=== PATIENT | male | born 1965 | race Caucasian/White ===

== ENCOUNTER 2021-05-19 12:26 | Inpatient (IN) | payer BC, SELFPAY ==
--- NOTE | ~2021-05-19 | XR_ITS ---
EXAMINATION: XR foot LT min 3V DATE: 05/19/2021 16:11 INDICATION: Plantar wound of the foot near the fifth metatarsophalangeal joint. TECHNIQUE: 4 views of right foot were obtained. COMPARISON: None. FINDINGS: Bone alignment is normal. No fracture. There is an erosion of lateral aspect of head of fif th metatarsal. There is soft tissue swelling in this area. There is mild osteoarthritis of some of th e interphalangeal joints. There is an enthesophyte at posterior aspect of calcaneal tuberosity. IMPRESSION: 1. Erosion of head of fifth metatarsal. The differential diagnosis includes osteomyelitis and gout. Reviewed, dictated and finalized at location A. EGE ASSOCIATE IMPRESSION: 1. Erosion of head of fifth metatarsal. The differential diagnosis includes ost eomyelitis and gout.
--- NOTE | ~2021-05-19 | MR_ITS ---
EXAMINATION: MR foot LT wo/w con DATE: 05/21/2021 16:41 INDICATION: Left foot diabetic ulcer. TECHNIQUE: Magnetic resonance imaging (MRI) of the left foot was performed without and with 17 mL Mul tiHance intravenous contrast. Sequences included sagittal T2-weighted FS FSE and T1-weighted FSE and short-axis and long-axis T1-weighted FSE and T2-weighted FS FSE. Postcontrast sequences included shor t-axis and long-axis T1-weighted FS FSE. COMPARISON: Left foot radiographs 05/19/2021 FINDINGS: There is mild hallux valgus. No fracture. There is bone marrow edema and enhancement involv ing head of fifth metatarsal and base of fifth proximal phalanx characterized by decreased T1-weighte d signal intensity and contrast enhancement, consistent with osteomyelitis. There is an effusion of f ifth metatarsophalangeal joint. There is failure of fat saturation on the T2-weighted sequences invol ving the fourth and fifth digits. There is an ulcer plantar to head of fifth metatarsal. There is non enhancement of soft tissue anterior, lateral, and plantar to head of fifth metatarsal. There is mild osteoarthritis of first metatarsophalangeal joint and some the interphalangeal joints. There is wides pread fatty atrophy and increased T2-weighted signal intensity of the musculature, consistent with hutchinson bacute on chronic denervation. Lisfranc ligament is intact. IMPRESSION: 1. Acute osteomyelitis involving head of fifth metatarsal and base of fifth proximal phalanx with sep tic arthritis of fifth metatarsophalangeal joint. 2. Nonenhancement of soft tissue plantar, lateral, and dorsal to fifth metatarsophalangeal joint, con sistent with necrosis/abscess. Reviewed, dictated and finalized at location A. CTOR OF RECRUITMENT AND ADMISSIONS IMPRESSION: 1. Acute osteomyelitis involving head of fifth metatarsal and base of fifth pro ximal phalanx with septic arthritis of fifth metatarsophalangeal joint. 2. Nonenhancement of soft tissue plantar, lateral, and dorsal to fifth metatars ophalangeal joint, consistent with necrosis/abscess.
--- NOTE | ~2021-05-19 | XR_ITS ---
EXAMINATION: XR chest PICC line EXAM DATE: 05/23/2021 12:16 INDICATION: PICC line insertion. TECHNIQUE: Portable AP frontal chest x-ray was obtained. There is no prior study for comparison. FINDINGS: There is a left-sided PICC line with tip projecting over the cavoatrial junction. The lungs are clear. There are no pleural effusions. The cardiomediastinal silhouette is within normal limit s. There is no pneumothorax suspected. The bones and soft tissues are unremarkable. IMPRESSION: Left-sided PICC line in position. Reviewed, dictated and finalized at location B. RANCE ADJUSTOR
[2021-05-19 13:07] VITALS: BP 165/94; PULSE 110; RESP 18; TEMP 37.3; O2SAT 99
[2021-05-19 16:05] LABS: Basophils Absolute Auto 0.1 K/mm3 (0.0-0.1); Basophils Percent Auto 0.3 % (0.2-1.2); Hemoglobin 13.9 g/dL (14.0-18.0); Immature Granulocyte Absolute 0.11 K/mm3 (0.00-0.031); Immature Granulocyte Percent A 0.6 % (0-0.5); Lymphocytes Absolute Auto 1.24 K/mm3 (0.9-3.2); Lymphocytes Percent Auto 6.2 % (18.3-44.2); Mean Corpuscular HGB Conc 33.9 g/dl (32-36); Mean Corpuscular Hemoglobin 29.3 pg (26-34); Mean Corpuscular Volume 86.3 fl (80-100); Mean Platelet Volume 9.3 fl (7.4-10.4); Monocytes Absolute Auto 1.4 K/mm3 (0.1-0.6); Monocytes Percent Auto 6.8 % (2.6-8.5); Neutrophils Absolute Auto 17.2 K/mm3 (1.3-6.7); Neutrophils Percent Auto 86.1 % (45.5-73.1); Platelet Count Result 323 k/mm3 (150-375); Red Blood Count 4.75 M/mm3 (4.6-6.20); Red Cell Distribution Width 12.4 % (11.5-14.5)
[2021-05-19] MEDS: SODIUM CHLORIDE 0.9% IV 1,000 ML 999 ML IV CONT (16:07)
--- NOTE | 2021-05-19 16:07 | ED.GENADULT ---
HPI - General Adult General Chief complaint: Extremity Injury, Lower Stated complaint: Foot infection. Time Seen by Provider: 05/19/21 15:25 History of Present Illness HPI narrative: Patient is a 55-year-old male who presents ER with infection to his left foot. He has an ulcer on the plantar aspect of his foot at the fifth MTP. Is been followed by his records management engineer and he has been taking Augmentin. Patient began having streaking up his leg over the last 2 days. He saw his doctor today who recommended that he come to the ER to be evaluated. He denies fevers or chills or sweats. No significant pain in the leg. He does report some purulent drainage today. Related Data Allergies Allergy/AdvReac Type Severity Reaction Status Date / Time No Known Allergies Allergy Mild Verified 05/19/21 13:11 Review of Systems Review of Systems: All systems reviewed & are unremarkable except as noted in HPI and below Constitutional: Constitutional: Denies chills, Denies fever(s) and Denies weakness ENT: Denies nasal congestion and Denies sore throat Cardiovascular: Cardiovascular: Denies chest pain, Denies rapid heart rate and Denies radiating jaw, neck or arm pain Gastrointestinal: Gastrointestinal: Denies abdominal pain, Denies nausea and Denies vomiting Integumentary/Breasts: Skin/Breast: Reports erythema and Reports skin ulcer PMFSH Past Medical History Medical History (Updated 05/19/21 @ 20:37 by Rangel Simmons MD) Diabetes Surgical History Surgical History (Updated 05/19/21 @ 20:32 by Rangel Simmons MD) Amputation toe Social History Social History (Updated 05/19/21 @ 20:33 by Rangel Simmons MD) Smoking status: Never smoker Exam Narrative: GENERAL: Well-appearing, well-nourished, and in no acute distress. HEAD: Normocephalic, atraumatic. ENT: Mucous membranes moist. CHEST: Clear to auscultation. No respiratory distress. HEART: Tachycardic regular. Normal peripheral pulses. ABDOMEN: Soft, nontender, nondistended. EXTREMITIES: Normal range of motion. No edema. SKIN: Warm, dry, no rash. Ulceration of the left foot beneath the fifth MTP, no drainage. There is cellulitis extending laterally around the foot and extending over the dorsum and streaking medially up towards the knee. NEURO: Alert and oriented x3. PSYCH: Normal mood and affect. Course Course Emergency Course: Discussed case with patient and with general surgery. Admit to hospital service. Vital Signs Vital signs: Vital Signs Temperature 99.2 F 05/19/21 13:07 Pulse Rate 110 H 05/19/21 13:07 Respiratory Rate 18 05/19/21 13:07 Blood Pressure 165/94 H 05/19/21 13:07 Pulse Oximetry 99 05/19/21 13:07 Temperature 99.2 F 05/19/21 13:07 Pulse Rate 110 H 05/19/21 13:07 Respiratory Rate 18 05/19/21 13:07 Blood Pressure 165/94 H 05/19/21 13:07 Pulse Oximetry 99 05/19/21 13:07 Medical Decision Making Vital Signs Vital Signs: Vital Signs Temperature 99.2 F 05/19/21 13:07 Pulse Rate 110 H 05/19/21 13:07 Respiratory Rate 18 05/19/21 13:07 Blood Pressure 165/94 H 05/19/21 13:07 Pulse Oximetry 99 05/19/21 13:07 Temperature 99.2 F 05/19/21 13:07 Pulse Rate 110 H 05/19/21 13:07 Respiratory Rate 18 05/19/21 13:07 Blood Pressure 165/94 H 05/19/21 13:07 Pulse Oximetry 99 05/19/21 13:07 Lab Data Result diagrams: 05/19/21 15:56 05/19/21 15:56 Labs: Lab Results 05/19/21 05/19/21 05/19/21 Range/Units 15:56 15:56 15:56 WBC 20.0 H (4.5-10.0) K/mm3 RBC 4.75 (4.6-6.20) M/mm3 Hgb 13.9 L (14.0-18.0) g/dL Hct 41.0 L (42.0-52.0) % MCV 86.3 (80-100) fl MCH 29.3 (26-34) pg MCHC 33.9 (32-36) g/dl RDW 12.4 (11.5-14.5) % Plt Count 323 (150-375) k/mm3 MPV 9.3 (7.4-10.4) fl Immature Gran % (Auto) 0.6 H (0-0.5) % Neut % (Auto) 86.1 H (45.5-73.1) % Lymph % (Auto) 6.2 L (18.3-44.2) % [place] % (Auto) 6
[2021-05-19 16:19] LABS: Anion Gap 14 mmol/L (8-16); Blood Urea Nitrogen 19 mg/dL (9-20); Calcium 9.5 mg/dL (8.4-10.2); Carbon Dioxide 23 mmol/L (22-30); Chloride 96 mmol/L (98-107); Estimated CRCL calculation 80 ml/min; Estimated Glomerular Filt Rate > 60; Glucose 131 mg/dL (65-110); Sodium 133 mmol/L (137-145)
[2021-05-19 17:08] LABS: CRP 14.2 mg/dL (<1.0)
[2021-05-19 17:11] LABS: Erythrocyte Sedimentation Rate 69 mm/hr (0-20)
--- NOTE | 2021-05-19 17:27 | PM.CNGS ---
Assessment and Plan Assessment and plan (1) Diabetic foot infection: Code(s): E11.628 - Type 2 diabetes mellitus with other skin complications; L08.9 - Local infection of the skin and subcutaneous tissue, unspecified Status: Acute Assessment and Plan: local wound care, IV abx, may need MRI for further eval (2) Diabetes: Code(s): E11.9 - Type 2 diabetes mellitus without complications Status: Acute Assessment and Plan: tight bs control History of Present Illness Consult details Consult date: 05/19/21 Reason for consult: wound care Requesting physician: Rangel Simomns MD Narrative: The patient is a 55 year male, with a history of diabetes and neuropathy, presenting to the emergency department with a left foot infection. The patient reports that he has a chronic wound on the plantar surface of his left foot present for many months. The patient has seen his statistical methods professor weekly and reports the wound has been stable. The patient reports over the last few days the area seems more inflamed and he recently developed a cellulitis streaking up his left lower extremity. The patient reports some purulent drainage that started today. The patient was seen by his statistical methods professor earlier today. He reports that his wound was debrided and then he was told to come to the emergency department for further evaluation. Of note, Augmentin since Wednesday. The patient has a history of toe amputation secondary to a foot infection in his right foot. Review of Systems Constitutional: Constitutional: Denies anorexia, Denies body ache(s), Denies chills, Reports fatigue, Denies fever(s), Denies malaise, Denies poor appetite, Reports weakness, Denies weight gain and Denies weight loss Eyes: Eyes: Reports no additional eye complaints ENT: Reports system reviewed and no additional complaints, except as documented Cardiovascular: Cardiovascular: Reports no additional cardiovascular complaints Respiratory: Respiratory: Reports no additional respiratory complaints Gastrointestinal: Gastrointestinal: Reports no additional gastrointestinal complaints Genitourinary: Genitourinary: Reports no additional male genitourinary complaints Musculoskeletal: Musculoskeletal: Reports as per HPI, Reports abnormal gait, Reports deformity, Reports numbness and Reports tingling Integumentary/Breasts: Skin/Breast: Reports as per HPI, Reports swelling, Reports erythema, Reports skin ulcer and Reports wounds Neurologic: Reports system reviewed and no additional complaints, except as documented Psychiatric: Psychiatric: Reports no additional psychiatric complaints Endocrine: Endocrine: Reports no additional endocrine complaints Hematologic/Lymphatic: Hematologic/Lymphatic: Reports no additional hematologic/lymphatic complaints Allergic/Immunologic: Allergic/Immunologic: Reports no additional allergic/immunologic complaints PMFSH Comments PMH - DM, neuropathy Surgical history - R toe amputation FH - DM SH - pt denies tobacco, illicit drug use Meds Home Medications and Allergies Allergies Allergy/AdvReac Type Severity Reaction Status Date / Time No Known Allergies Allergy Mild Verified 05/19/21 13:11 Vital Signs Vital Signs - 24 hr 05/19/21 13:07 Temperature 37.3 C Pulse Rate 110 H Respiratory Rate 18 Blood Pressure 165/94 H Pulse Oximetry 99 Exam Const: General: cooperative, comfortable and no acute distress Nutritional Appearance: overweight Orientation/consciousness: patient oriented x3 Limitations: no limitations HENMT: Head: normal to inspection, No palpable skull fracture present, normocephalic and atraumatic Ears: hearing grossly normal bilaterally General nose exam: Normal external nose present Face and sinus: normal facial exam Mouth: Yes Normal oral and palatal mucosa present and Yes moist mucous membranes Eyes: General: appearance normal, both eyes and all related structures Pupils: Equal, round and reac
--- NOTE | 2021-05-19 17:29 | PC.NURSE ---
order pt a diabetic room tray at [id number]
--- NOTE | 2021-05-19 18:45 | PM.IMHP ---
H&P: HPI History of Present Illness Date/Time: 05/19/21 18:45 Chief Complaint: Left foot infection. Narrative: This is a 55-year-old male with insulin dependent diabetes, diabetic peripheral neuropathy, he and peripheral vascular disease with history of right lower extremity stent who presented to the emergency department earlier today at the direction of his treasury accountant for evaluation of a left diabetic foot infection. He has had a small callused wound on the bottom of his left 5th toe for a couple of months and over the last week it has become red, swollen, and painful. He was started on Augmentin by his treasury accountant and despite compliance with the antibiotic the swelling and redness have worsened and he now has redness streaking up the left medial leg. Last evening he developed chills, nausea, and he has had several episodes of emesis. Left foot x-ray done in the emergency department showed erosion of the head of the 5th metatarsal and he is being admitted in this setting. He has not had a fever to his knowledge. No history of MRSA. Review of Systems Review of Systems: Twelve systems were reviewed. He was diagnosed with diabetes about 20 years ago and has severe neuropathy, typically not able to feel anything in his feet however he does have pain from this wound. No claudication. No chest pain or shortness of breath. No cough. No sick contacts. Except as documented, all other systems were reviewed and are negative. [facility] Past Medical History Medical History (Updated 05/19/21 @ 23:10 by Milagros Jackson PA-C) Diabetic peripheral neuropathy Insulin dependent type 2 diabetes mellitus Osteomyelitis Peripheral vascular disease Surgical History Surgical History (Updated 05/19/21 @ 23:01 by Milagros Jackson PA-C) History of cystoscopy With stone extraction. History of lithotripsy History of partial ray amputation of fifth toe of right foot History of vascular surgery Right lower extremity stent. History of ventral hernia repair Family History Family History (Updated 05/19/21 @ 23:01 by Milagros Jackson PA-C) Other Diabetes mellitus Hypertension Social History Social History (Updated 05/19/21 @ 23:02 by Milagros Jackson PA-C) Social History: Surrogate decision maker: Nataliia Back, spouse. Code status: Full code. Smoking status: Never smoker Alcohol intake: never Substance use: never Additional living arrangements comments: The patient lives in [place] with his . Additional occupation/education comments: Works for [employer]. Meds Home Medications and Allergies Home Medications Medication Instructions Recorded Confirmed Type aspirin [Adult Aspirin EC Low 81 mg PO DAILY 05/19/21 05/19/21 History Strength] atorvastatin 40 mg PO DAILY 05/19/21 05/19/21 History clopidogrel [Plavix] 75 mg PO DAILY 05/19/21 05/19/21 History dulaglutide [Trulicity] 3 mg SUBCUT WEEKLY 05/19/21 05/19/21 History empagliflozin [Jardiance] 25 mg PO DAILY 05/19/21 05/19/21 History insulin glargine [Lantus U-100 23 unit SUBCUT HS 05/19/21 05/19/21 History Insulin] meloxicam 15 mg PO DAILY 05/19/21 05/19/21 History metformin 500 mg PO BID 05/19/21 05/19/21 History Allergies Allergy/AdvReac Type Severity Reaction Status Date / Time No Known Allergies Allergy Mild Verified 05/19/21 13:11 Vital Signs Vital Signs - 24 hr 05/19/21 13:07 Temperature 99.2 F Pulse Rate 110 H Respiratory Rate 18 Blood Pressure 165/94 H Pulse Oximetry 99 Exam Narrative: General: Mildly ill-appearing male lying on his right side in bed. Weight: 84.7 kg. BMI: 25.3. HEENT: PERRL, EOMI. Sclerae anicteric. Tacky mucous membranes. Neck: Supple. Respiratory: Lungs are clear to auscultation bilaterally. Cardiovascular: Regular rate and rhythm with S1-S2. Gastrointestinal: Abdomen is soft, nontender, and nondistended with positive bowel sounds. Skin: Warm and dry. There is an open wound on the pl
[2021-05-19 20:58] VITALS: BP 164/88; PULSE 99; RESP 18; TEMP 37; O2SAT 97
[2021-05-19 21:03] VITALS: BMI 25.3
--- NOTE | 2021-05-19 21:33 | PC.NURSE ---
This patient, Jalen Back, was admitted to Medical Room 345-01. Patient/family oriented to hospital policies and general routines including ID bracelet, bed and alarms, visiting hours, pain management, procedures, bathroom and other care routines, personal items, smoking policy, room service/diet, and visiting hours. Information on how to activate the Rapid Response Team has been discussed. Patient/Family are encouraged to report perceived risks to care and to ask questions if they do not understand what they are told or what they should do.
[2021-05-19] MEDS: INSULIN GLARGINE (*BKC) 100 UNITS/ML 23 UNITS SUB-Q (23:59)
[2021-05-20 00:01] LABS: Glucose Point of Care 111 mg/dl (65-105)
[2021-05-20 04:56] VITALS: BP 142/78; PULSE 102; RESP 17; TEMP 36.2; O2SAT 99
[2021-05-20 06:17] LABS: Hematocrit 38.2 % (42.0-52.0); Hemoglobin 13.1 g/dL (14.0-18.0); Mean Corpuscular HGB Conc 34.3 g/dl (32-36); Mean Corpuscular Volume 84.7 fl (80-100); Mean Platelet Volume 9.3 fl (7.4-10.4); Platelet Count Result 328 k/mm3 (150-375); Red Blood Count 4.51 M/mm3 (4.6-6.20); Red Cell Distribution Width 12.2 % (11.5-14.5)
[2021-05-20 06:25] LABS: Alanine Aminotransferase 12 U/L (4-50); Albumin Level 4.1 g/dL (3.5-5.1); Alkaline Phosphatase 78 U/L (38-126); Anion Gap 10 mmol/L (8-16); Aspartate Amino Transferase 17 U/L (17-59); Bilirubin,Total 0.9 mg/dL (0.2-1.3); Blood Urea Nitrogen 16 mg/dL (9-20); Calcium 9.1 mg/dL (8.4-10.2); Carbon Dioxide 22 mmol/L (22-30); Chloride 101 mmol/L (98-107); Estimated CRCL calculation 114 ml/min; Estimated Glomerular Filt Rate > 60; Glucose 118 mg/dL (65-110); Magnesium 2.1 mg/dL (1.6-2.3); Potassium 3.9 mmol/L (3.4-5.0); Sodium 133 mmol/L (137-145); Uric Acid 5.1 mg/dL (3.5-8.5)
[2021-05-20 06:56] LABS: Hemoglobin A1C 6.2 % (<5.7)
[2021-05-20 07:44] LABS: Glucose Point of Care 129 mg/dl (65-105)
[2021-05-20] MEDS: ATORVASTATIN 40 MG TABLET PO (09:43)
[2021-05-20] MEDS: CLOPIDOGREL BISULFATE 75 MG TABLET PO (09:43)
[2021-05-20] MEDS: EMPAGLIFLOZIN 25 MG TABLET PO (09:43)
[2021-05-20] MEDS: ASPIRIN 81 MG ENTERIC TABLET PO (09:44)
[2021-05-20 11:39] LABS: Glucose Point of Care 106 mg/dl (65-105)
[2021-05-20 13:43] VITALS: BP 150/84; PULSE 97; RESP 18; TEMP 36.9; O2SAT 100
--- NOTE | 2021-05-20 14:16 | PM.IMPN ---
Progress Note: A&P Assessment and Plan (1) Diabetic infection of left foot: Code(s): E11.628 - Type 2 diabetes mellitus with other skin complications; L08.9 - Local infection of the skin and subcutaneous tissue, unspecified Status: Acute Assessment and Plan: Imaging shows erosion of the head of the 5th metatarsal most consistent with osteomyelitis, although gout is a less likely possibility. Continue imipenem and vancomycin per antibiotic stewardship recommendations. General surgery is following and input is appreciated. Appreciate Wound Care consultation. MRI of the left foot is pending. Leukocytosis slightly improving. Preliminary blood cultures negative to date. Patient remains afebrile. Supportive care to include analgesics, ice, or heat as needed. Elevate extremity. (2) Cellulitis of left foot: Code(s): L03.116 - Cellulitis of left lower limb Status: Acute Assessment and Plan: He has been started on broad-spectrum antibiotics as detailed above. (3) Insulin dependent type 2 diabetes mellitus: Code(s): E11.9 - Type 2 diabetes mellitus without complications; Z79.4 - custodial (current) use of insulin Status: Acute Assessment and Plan: A1c is 6.2. Blood sugars have been well controlled. Continue basal insulin and empagliflozin. Continue sliding scale insulin, Accu-Cheks, and hypoglycemic protocol. (4) Diabetic peripheral neuropathy: Code(s): E11.42 - Type 2 diabetes mellitus with diabetic polyneuropathy Status: Acute Assessment and Plan: Patient has severe neuropathy in his feet, not currently on any medication. (5) Peripheral vascular disease: Code(s): I73.9 - Peripheral vascular disease, unspecified Status: Acute Assessment and Plan: Continue aspirin and clopidogrel. (6) Elevated blood pressure reading: Code(s): R03.0 - Elevated blood-pressure reading, without diagnosis of hypertension Status: Acute Assessment and Plan: Blood pressure is elevated in the 150-160 systolic range. He denies any history of hypertension. May be related to pain and/or anxiety related to hospitalization. Continue to monitor blood pressure trends. Consider addition of antihypertensive agent if blood pressures remain elevated. Subjective Date/time seen: 05/20/21 14:16 Interval history: Date of Service: 05/20/2021 Jalen back is a 55-year-old male with a history of insulin-dependent diabetes mellitus, osteomyelitis s/p amputation of right 5th toe, and peripheral vascular disease who is seen in follow-up for diabetic foot wound of his left foot. He is doing better today. He notes that the wound has been present for approximately 6 months and has been followed by his relief map modeler. He notes that a couple days ago it became red, puffy, warm and he was afraid it seemed infected. He called his relief map modeler who started him on antibiotics and on Wednesday he developed red streaking up his legs. At this time he is doing okay. He does endorse persistence of red streaking up the leg up to the knee. He has poor sensation of his lower extremities, therefore does not have much pain. He notes that his pain is gone up to about 6.5/10 He is able to bear weight on the foot but has been trying to walk on his heel to offload some. He denies nausea, vomiting, fever, or chills. He does note that last night he had some nausea but no episodes today and he has been able to tolerate his diet. No diarrhea. He reports regular bowel movements. Denies any urinary symptoms. No shortness of breath, cough, chest pain, or palpitations. Review of Systems Review of Systems: All systems reviewed & are unremarkable except as noted in HPI and below Exam Narrative: Mr. Back is a well-nourished, well-appearing 55-year-old male who is lying supine in bed. He appears comfortable and is in NARD. Neuro: awake, alert and oriented x4, speech nela
--- NOTE | 2021-05-20 14:40 | PM.PNGS ---
Progress Note: A&P Assessment and Plan (1) Diabetic infection of left foot: Code(s): E11.628 - Type 2 diabetes mellitus with other skin complications; L08.9 - Local infection of the skin and subcutaneous tissue, unspecified Status: Acute Assessment and Plan: cont IV abx, will get MRI for further eval, cont local wound care Subjective Subjective Date/Time Seen: 05/20/21 14:40 feels better today, swelling seems improved Review of Systems Review of Systems: All systems reviewed & are unremarkable except as noted in HPI and below Exam Const: General: cooperative, comfortable and no acute distress Resp: Effort & Inspection: normal respiratory effort Auscultation: clear to auscultation bilaterally Cardio: Rate: regular rate Rhythm: regular rhythm GI: Inspection: normal to inspection and non-distended GI Palp: Yes Soft to palpation and No Tenderness to palpation present (GI) Skin: General skin exam: normal color and no rashes or lesions noted Psych: Other: L foot drsg - C/D/I, cellulitis sl improved Objective Data Vital Signs Vital Signs: Vital Signs - 24 hr 05/19/21 20:58 05/20/21 04:56 05/20/21 13:43 Temperature 37.0 C 36.2 C L 36.9 C Pulse Rate 99 102 H 97 Respiratory Rate 18 17 18 Blood Pressure 164/88 H 142/78 H 150/84 H Pulse Oximetry 97 99 100 Intake/Output Intake/Output: Intake & Output 05/17/21 05/18/21 05/19/21 05/20/21 23:59 23:59 23:59 23:59 Intake Total 1600 1480 Balance 1600 1480 Meds/Results Medications: Active Medications Generic Name Dose Route Start Last Admin Trade Name Freq PRN Reason Stop Dose Admin Acetaminophen 650 mg 05/19/21 16:47 Acetaminophen 325 Mg Tablet PO Q4H PRN Mild Pain (1-3) or Fever Hydrocodone Bitart/Acetaminophen 1 tab 05/19/21 16:47 Hydrocodone/Acetaminophen (*Crx) 5-325 Mg Tablet PO Q4H PRN Pain Rated 4-6 Aspirin 81 mg 05/20/21 09:00 05/20/21 09:44 Aspirin 81 Mg Enteric Tablet PO 81 mg DAILY ALLY Administration Atorvastatin Calcium 40 mg 05/20/21 09:00 05/20/21 09:43 Atorvastatin 40 Mg Tablet PO 40 mg DAILY ALLY Administration Clopidogrel Bisulfate 75 mg 05/20/21 09:00 05/20/21 09:43 Clopidogrel Bisulfate 75 Mg Tablet PO 75 mg DAILY ALLY Administration Dextrose 12.5 gm 05/19/21 23:07 Dextrose 50% 25 Gm/50 Ml Syringe IV PUSH PRN PRN Hypoglycemia Protocol Empagliflozin 25 mg 05/20/21 09:00 05/20/21 09:43 Empagliflozin 25 Mg Tablet PO 25 mg DAILY ALLY Administration Glucagon 1 mg 05/19/21 23:07 Glucagon For Inj 1 Mg Vial IM PRN PRN Hypoglycemia Protocol Glucose 15 gm 05/19/21 23:07 Glucose Oral Gel 15 Gm Of Glucse In 37.5 Gm Tube PO PRN PRN Hypoglycemia Protocol Imipenem/Cilastatin Sodium 500 100 mls @ 300 mls/hr 05/20/21 00:00 05/20/21 11:42 mg/ Sodium Chloride IVPB Infused Q6H ALLY Infusion Vancomycin HCl 1,500 mg in 500 mls @ 333.333 mls/hr 05/20/21 06:00 05/20/21 08:21 Vancomycin 1,500 Mg/D5w 500 Ml IVPB Infused Q12H ALLY Infusion Dextrose 1,000 mls @ 100 mls/hr 05/19/21 23:07 Dextrose 5% 1,000 Ml IVPB PRN PRN Hypoglycemia Protocol Insulin Aspart 3 - 6 units 05/20/21 08:00 05/20/21 11:23 Insulin Aspart (*Bkc) 100 Units/Ml SUB-Q Not Given TIDWM [facility] [place] Protocol Insulin Glargine 23 units 05/19/21 23:30 05/19/21 23:59 Insulin Glargine (*Bkc) 100 Units/Ml SUB-Q 23 units HS ALLY Administration Morphine Sulfate 4 mg 05/19/21 16:47 Morphine Sulfate (*Crx) 4 Mg/Ml Inj IV PUSH Q2H PRN Pain Rated 7-10 Ondansetron HCl 4 mg 05/19/21 16:47 Ondansetron Inj 4 Mg/2 Ml Vial IV PUSH Q4H PRN Nausea Radiology Results: ITS Impressions Foot X-Ray 05/19/21 16:14 IMPRESSION: 1. Erosion of head of fifth metatarsal. The differential diagnosis includes osteomyelitis and gout. Labs Labs: Laborat
[2021-05-20 17:00] LABS: Glucose Point of Care 97 mg/dl (65-105)
[2021-05-20 19:49] VITALS: BP 151/85; PULSE 96; RESP 17; TEMP 36.2; O2SAT 99
[2021-05-20] MEDS: INSULIN GLARGINE (*BKC) 100 UNITS/ML 23 UNITS SUB-Q (20:32)
[2021-05-20 20:36] LABS: Glucose Point of Care 121 mg/dl (65-105)
[2021-05-21 05:12] VITALS: BP 148/83; PULSE 96; RESP 16; TEMP 36.8; O2SAT 99
[2021-05-21 05:58] LABS: Hematocrit 44.1 % (42.0-52.0); Hemoglobin 14.2 g/dL (14.0-18.0); Mean Corpuscular HGB Conc 32.2 g/dl (32-36); Mean Corpuscular Hemoglobin 29.4 pg (26-34); Mean Corpuscular Volume 91.3 fl (80-100); Mean Platelet Volume 9.3 fl (7.4-10.4); Platelet Count Result 302 k/mm3 (150-375); Red Blood Count 4.83 M/mm3 (4.6-6.20); Red Cell Distribution Width 12.3 % (11.5-14.5); White Blood Count 10.9 K/mm3 (4.5-10.0)
[2021-05-21 07:00] LABS: Anion Gap 9 mmol/L (8-16); Blood Urea Nitrogen 14 mg/dL (9-20); Calcium 9.1 mg/dL (8.4-10.2); Carbon Dioxide 23 mmol/L (22-30); Chloride 101 mmol/L (98-107); Estimated CRCL calculation 131 ml/min; Estimated Glomerular Filt Rate > 60; Glucose 101 mg/dL (65-110); Potassium 4.6 mmol/L (3.4-5.0); Sodium 133 mmol/L (137-145)
[2021-05-21 07:56] LABS: Glucose Point of Care 95 mg/dl (65-105)
[2021-05-21] MEDS: CLOPIDOGREL BISULFATE 75 MG TABLET PO (08:25)
[2021-05-21] MEDS: EMPAGLIFLOZIN 25 MG TABLET PO (08:25)
[2021-05-21] MEDS: ATORVASTATIN 40 MG TABLET PO (08:25)
[2021-05-21] MEDS: ASPIRIN 81 MG ENTERIC TABLET PO (08:25)
--- NOTE | 2021-05-21 11:20 | PM.IMPN ---
Progress Note: A&P Assessment and Plan (1) Diabetic infection of left foot: Code(s): E11.628 - Type 2 diabetes mellitus with other skin complications; L08.9 - Local infection of the skin and subcutaneous tissue, unspecified Status: Acute Assessment and Plan: Imaging shows erosion of the head of the 5th metatarsal most consistent with osteomyelitis or gout Uric acid 5.1 Continue imipenem and vancomycin per antibiotic stewardship recommendations General surgery Consulted thank you for your help Wound Care consultation MRI of the left foot is ordered and pending Leukocytosis improving 10.9 Preliminary blood cultures negative to date afebrile Supportive care to include analgesics, ice, or heat as needed Elevate extremity. (2) Cellulitis of left foot: Code(s): L03.116 - Cellulitis of left lower limb Status: Acute Assessment and Plan: broad-spectrum antibiotics as detailed above. 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 (5) Peripheral vascular disease: Code(s): I73.9 - Peripheral vascular disease, unspecified Status: Acute Assessment and Plan: Continue aspirin and clopidogrel. (6) Elevated blood pressure reading: Code(s): R03.0 - Elevated blood-pressure reading, without diagnosis of hypertension Status: Acute Assessment and Plan: Current BP is 148/83 Blood pressure is elevated in the 150-160 systolic range denies any history of hypertension May be related to pain and/or anxiety related to hospitalization Continue to monitor blood pressure trends Add lisinopril 5mg Additional Plan MRI delayed due to stent in leg, requesting records at this time Time Spent With Patient Time with patient: 25 - 35 minutes Subjective Date/time seen: 05/21/21 11:20 Interval history: Date/Time: 05/19/21 18:45 Narrative: This is a 55-year-old male with insulin dependent diabetes, diabetic peripheral neuropathy, he and peripheral vascular disease with history of right lower extremity stent who presented to the emergency department earlier today at the direction of his tube test technician for evaluation of a left diabetic foot infection. He has had a small callused wound on the bottom of his left 5th toe for a couple of months and over the last week it has become red, swollen, and painful. He was started on Augmentin by his tube test technician and despite compliance with the antibiotic the swelling and redness have worsened and he now has redness streaking up the left medial leg. Last evening he developed chills, nausea, and he has had several episodes of emesis. Left foot x-ray done in the emergency department showed erosion of the head of the 5th metatarsal and he is being admitted in this setting. He has not had a fever to his knowledge. No history of MRSA. Date/time seen: 05/20/21 14:16 Jalen gomez is a 55-year-old male with a history of insulin-dependent diabetes mellitus, osteomyelitis s/p amputation of right 5th toe, and peripheral vascular disease who is seen in follow-up for diabetic foot wound of his left foot. He is doing better today. He notes that the wound has been present for approximately 6 months and has been followed by his tube test technician. He notes that a couple days ago it became red, puffy, warm and he was afraid it seemed infected. He called his tube test technician
--- NOTE | 2021-05-21 11:20 | P.PNIM_ITS ---
Progress Note: A&P Assessment and Plan (1) Diabetic infection of left foot: Code(s): E11.628 - Type 2 diabetes mellitus with other skin complications; L08.9 - Local infection of the skin and subcutaneous tissue, unspecified Status: Acute Assessment and Plan: * Imaging shows erosion of the head of the 5th metatarsal most consistent with osteomyelitis or gout * Uric acid 5.1 * Continue imipenem and vancomycin per antibiotic stewardship recommendations * General surgery Consulted thank you for your help * Wound Care consultation * MRI of the left foot is ordered and pending * Leukocytosis improving 10.9 * Preliminary blood cultures negative to date * afebrile * Supportive care to include analgesics, ice, or heat as needed * Elevate extremity. (2) Cellulitis of left foot: Code(s): L03.116 - Cellulitis of left lower limb Status: Acute Assessment and Plan: * broad-spectrum antibiotics as detailed above. 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 (5) Peripheral vascular disease: Code(s): I73.9 - Peripheral vascular disease, unspecified Status: Acute Assessment and Plan: * Continue aspirin and clopidogrel. (6) Elevated blood pressure reading: Code(s): R03.0 - Elevated blood-pressure reading, without diagnosis of hypertension Status: Acute Assessment and Plan: * Current BP is 148/83 * Blood pressure is elevated in the 150-160 systolic range * denies any history of hypertension * May be related to pain and/or anxiety related to hospitalization * Continue to monitor blood pressure trends * Add lisinopril 5mg Additional Plan * MRI delayed due to stent in leg, requesting records at this time Time Spent With Patient Time with patient: 25 - 35 minutes Subjective Date/time seen: 05/21/21 11:20 Interval history: Date/Time: 05/19/21 18:45 Narrative: This is a 55-year-old male with insulin dependent diabetes, diabetic peripheral neuropathy, he and peripheral vascular disease with history of right lower extremity stent who presented to the emergency department earlier today at the direction of his technician submarine cable equipment for evaluation of a left diabetic foot i nfection. He has had a small callused wound on the bottom of his left 5th toe for a couple of months and over the last week it has become red, swollen, and painful. He was started on Augmentin by his technician submarine cable equipment and despite compliance with the antibiotic the swelling and redness have worsened and he now has redness streaking up the left medial leg. Last evening he developed chills, nausea, and he has had several episodes of emesis. Left foot x-ray done in the emergency department showed erosion of the head of the 5th metatarsal and he is being admitted in this setting. He has not had a fever to his knowledge. No history of MRSA. Date/time seen: 05/20/21 14:16 Jalen gomez is a 55-year-old male with a history of insulin-d
[2021-05-21 11:41] LABS: Glucose Point of Care 152 mg/dl (65-105)
[2021-05-21 14:00] VITALS: BP 143/74; PULSE 98; RESP 16; TEMP 36.4; O2SAT 100
--- NOTE | 2021-05-21 15:08 | PM.PNGS ---
Progress Note: A&P Assessment and Plan (1) Diabetic infection of left foot: Code(s): E11.628 - Type 2 diabetes mellitus with other skin complications; L08.9 - Local infection of the skin and subcutaneous tissue, unspecified Status: Acute Assessment and Plan: await MRI for further workup, pt likely c osteo and will need abx vs amputation, cont IV abx Subjective Subjective Date/Time Seen: 05/21/21 15:08 feels better today, no acute issues Review of Systems Review of Systems: All systems reviewed & are unremarkable except as noted in HPI and below Exam Const: General: cooperative, comfortable and no acute distress Resp: Effort & Inspection: normal respiratory effort Auscultation: clear to auscultation bilaterally Cardio: Rate: regular rate Rhythm: regular rhythm GI: Inspection: normal to inspection GI Palp: Yes Soft to palpation and No Tenderness to palpation present (GI) Extrem: Other: L foot - cellulitis and swelling cont to improved, wound unchanged, sl drainage Objective Data Vital Signs Vital Signs: Vital Signs - 24 hr 05/20/21 19:49 05/21/21 05:12 05/21/21 14:00 Temperature 36.2 C L 36.8 C 36.4 C L Pulse Rate 96 96 98 Respiratory Rate 17 16 16 Blood Pressure 151/85 H 148/83 H 143/74 H Pulse Oximetry 99 99 100 Intake/Output Intake/Output: Intake & Output 05/18/21 05/19/21 05/20/21 05/21/21 23:59 23:59 23:59 23:59 Intake Total 1600 2300 1280 Balance 1600 2300 1280 Meds/Results Medications: Active Medications Generic Name Dose Route Start Last Admin Trade Name Freq PRN Reason Stop Dose Admin Acetaminophen 650 mg 05/19/21 16:47 Acetaminophen 325 Mg Tablet PO Q4H PRN Mild Pain (1-3) or Fever Hydrocodone Bitart/Acetaminophen 1 tab 05/19/21 16:47 Hydrocodone/Acetaminophen (*Crx) 5-325 Mg Tablet PO Q4H PRN Pain Rated 4-6 Aspirin 81 mg 05/20/21 09:00 05/21/21 08:25 Aspirin 81 Mg Enteric Tablet PO 81 mg DAILY ALLY Administration Atorvastatin Calcium 40 mg 05/20/21 09:00 05/21/21 08:25 Atorvastatin 40 Mg Tablet PO 40 mg DAILY [facility] Administration Clopidogrel Bisulfate 75 mg 05/20/21 09:00 05/21/21 08:25 Clopidogrel Bisulfate 75 Mg Tablet PO 75 mg DAILY [facility] Administration Dextrose 12.5 gm 05/19/21 23:07 Dextrose 50% 25 Gm/50 Ml Syringe IV PUSH PRN PRN Hypoglycemia Protocol Empagliflozin 25 mg 05/20/21 09:00 05/21/21 08:25 Empagliflozin 25 Mg Tablet PO 25 mg DAILY [facility] Administration Glucagon 1 mg 05/19/21 23:07 Glucagon For Inj 1 Mg Vial IM PRN PRN Hypoglycemia Protocol Glucose 15 gm 05/19/21 23:07 Glucose Oral Gel 15 Gm Of Glucse In 37.5 Gm Tube PO PRN PRN Hypoglycemia Protocol Imipenem/Cilastatin Sodium 500 100 mls @ 300 mls/hr 05/20/21 00:00 05/21/21 13:35 mg/ Sodium Chloride IVPB Infused Q6H [facility]Y Infusion Dextrose 1,000 mls @ 100 mls/hr 05/19/21 23:07 Dextrose 5% 1,000 Ml IVPB PRN PRN Hypoglycemia Protocol Vancomycin HCl 2,000 mg in 500 mls @ 250 mls/hr 05/21/21 08:00 05/21/21 10:26 Vancomycin 2,000 Mg/D5w 500 Ml IVPB Infused Q12H [facility]Y Infusion Insulin Aspart 3 - 6 units 05/20/21 08:00 05/21/21 13:13 Insulin Aspart (*Bkc) 100 Units/Ml SUB-Q Not Given TIDWM [facility] Protocol Insulin Glargine 23 units 05/19/21 23:30 05/20/21 20:32 Insulin Glargine (*Bkc) 100 Units/Ml SUB-Q 23 units HS [facility] Administration Lisinopril 5 mg 05/22/21 09:00 Lisinopril 5 Mg Tablet PO QAM ALLY Morphine Sulfate 4 mg 05/19/21 16:47 Morphine Sulfate (*Crx) 4 Mg/Ml Inj IV PUSH Q2H PRN Pain Rated 7-10 Ondansetron HCl 4 mg 05/19/21 16:47 Ondansetron Inj 4 Mg/2 Ml Vial IV PUSH Q4H PRN Nausea Radiology Results: ITS Impressions Foot X-Ray 05/19/21 16:14 IMPRESSION: 1. Erosion of head of fifth metatarsal. The differential diagnosis includes osteo
[2021-05-21 18:31] LABS: Glucose Point of Care 171 mg/dl (65-105)
[2021-05-21 20:00] VITALS: PULSE 97; RESP 16; O2SAT 99
[2021-05-21] MEDS: INSULIN GLARGINE (*BKC) 100 UNITS/ML 23 UNITS SUB-Q (20:15)
[2021-05-21 20:47] VITALS: BP 174/91; PULSE 97; RESP 16; TEMP 36.2; O2SAT 99
[2021-05-21 20:52] LABS: Glucose Point of Care 223 mg/dl (65-105)
--- NOTE | 2021-05-21 20:56 | PC.NURSE ---
Spoke with pt at length and he stated that stunt double wants him to have a Picc line and IV antibiotics for 6 weeks. Encouraged pt to speak with in am regarding situation.
[2021-05-22 05:06] VITALS: BP 159/94; PULSE 94; RESP 16; TEMP 36.2; O2SAT 100
[2021-05-22 06:28] LABS: Basophils Absolute Auto 0.1 K/mm3 (0.0-0.1); Basophils Percent Auto 0.6 % (0.2-1.2); Eosinophils Absolute Auto 0.5 K/mm3 (0-0.3); Eosinophils Percent Auto 4.4 % (0-4.4); Hematocrit 38.4 % (42.0-52.0); Hemoglobin 13.2 g/dL (14.0-18.0); Immature Granulocyte Absolute 0.06 K/mm3 (0.00-0.031); Immature Granulocyte Percent A 0.5 % (0-0.5); Lymphocytes Absolute Auto 1.59 K/mm3 (0.9-3.2); Lymphocytes Percent Auto 14.5 % (18.3-44.2); Mean Corpuscular HGB Conc 34.4 g/dl (32-36); Mean Corpuscular Hemoglobin 28.7 pg (26-34); Mean Corpuscular Volume 83.5 fl (80-100); Mean Platelet Volume 8.9 fl (7.4-10.4); Monocytes Percent Auto 8.7 % (2.6-8.5); Neutrophils Absolute Auto 7.8 K/mm3 (1.3-6.7); Neutrophils Percent Auto 71.3 % (45.5-73.1); Platelet Count Result 369 k/mm3 (150-375); Red Cell Distribution Width 12.2 % (11.5-14.5); White Blood Count 10.9 K/mm3 (4.5-10.0)
[2021-05-22 06:56] LABS: Alanine Aminotransferase 14 U/L (4-50); Albumin Level 3.9 g/dL (3.5-5.1); Alkaline Phosphatase 85 U/L (38-126); Anion Gap 9 mmol/L (8-16); Aspartate Amino Transferase 21 U/L (17-59); Bilirubin,Total 0.6 mg/dL (0.2-1.3); Blood Urea Nitrogen 11 mg/dL (9-20); Carbon Dioxide 24 mmol/L (22-30); Chloride 103 mmol/L (98-107); Estimated CRCL calculation 114 ml/min; Estimated Glomerular Filt Rate > 60; Glucose 119 mg/dL (65-110); Magnesium 2.2 mg/dL (1.6-2.3); Potassium 3.8 mmol/L (3.4-5.0); Sodium 136 mmol/L (137-145)
[2021-05-22 07:37] LABS: Glucose Point of Care 111 mg/dl (65-105)
[2021-05-22] MEDS: CLOPIDOGREL BISULFATE 75 MG TABLET PO (08:09)
[2021-05-22] MEDS: ATORVASTATIN 40 MG TABLET PO (08:09)
[2021-05-22] MEDS: ASPIRIN 81 MG ENTERIC TABLET PO (08:09)
[2021-05-22] MEDS: EMPAGLIFLOZIN 25 MG TABLET PO (08:09)
[2021-05-22 10:10] VITALS: BP 159/87; PULSE 87
[2021-05-22] MEDS: lisinopriL 5 MG TABLET PO (10:14)
--- NOTE | 2021-05-22 10:57 | PM.IMPN ---
Progress Note: A&P Assessment and Plan (1) Diabetic infection of left foot: Code(s): E11.628 - Type 2 diabetes mellitus with other skin complications; L08.9 - Local infection of the skin and subcutaneous tissue, unspecified Status: Acute Assessment and Plan: X-ray showed erosion of the head of the 5th metatarsal most consistent with osteomyelitis. MRI performed 05/21/21 showed acute osteomyelitis of the head of the 5th metatarsal and base of 5th proximal phalanx with septic arthritis of the 5th MTP joint as well as non enhancement of soft tissue of the plantar, lateral, and dorsal to 5th MTP joint consistent with necrosis/abscess Discussed case with general surgeon, Dr. Rodriges, who is following and with the patient's hospitality internship, Dr. Tellez, who has been managing the wound. Recommendations for amputation vs 6 weeks IV antibiotic therapy with reassessment. Patient determining if he would like to proceed directly with amputation vs attempting antibiotic therapy. He would like to speak with his hospitality internship about these options prior to making his decision. He will call today. Would arrange for PICC line and outpatient IV vancomycin with prompt podiatry follow-up if patient chooses antibiotic therapy approach. Care coordination following and aware of situation. Discussed with hospitality internship and reviewed patient's wound cultures from 05/19/2021 with growth of Staphylococcus aureus susceptible to vancomycin which is being continued. Will discontinue Primaxin at this time. Appreciate Wound Care consultation. Continue local wound care Leukocytosis has improved from presentation. CRP also improving. Patient remains afebrile. Blood cultures negative to date Supportive care to include analgesics, ice, or heat as needed. Elevate extremity (2) Osteomyelitis of fifth toe of left foot: Code(s): M86.9 - Osteomyelitis, unspecified Status: Acute Assessment and Plan: As above. (3) Septic arthritis: Code(s): M00.9 - Pyogenic arthritis, unspecified Status: Acute Assessment and Plan: See above. (4) Cellulitis of left foot: Code(s): L03.116 - Cellulitis of left lower limb Status: Acute Assessment and Plan: Plan as detailed above. 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 Blood sugars have been well controlled. Continue basal insulin and empagliflozin Continue sliding scale insulin, Accu-Cheks, and hypoglycemic protocol (6) Diabetic peripheral neuropathy: Code(s): E11.42 - Type 2 diabetes mellitus with diabetic polyneuropathy Status: Acute Assessment and Plan: Severe neuropathy in his feet, not currently on any medication. (7) Peripheral vascular disease: Code(s): I73.9 - Peripheral vascular disease, unspecified Status: Acute Assessment and Plan: Continue aspirin and clopidogrel. (8) Elevated blood pressure reading: Code(s): R03.0 - Elevated blood-pressure reading, without diagnosis of hypertension Status: Acute Assessment and Plan: Blood pressure has been elevated. The patient denies any history of hypertension. Initially thought it may be related to pain and/or anxiety related to hospitalization, though BP remains persistently elevated. Last BP 159/94 Initiated on lisinopril 5 mg daily Monitor blood pressure trends and adjust medication regimen as needed Subjective Date/time seen: 05/22/21 10:57 Interval history: Date of Service: 05/22/2021 Jalen Back is a 55-year-old male with a history of insulin-dependent diabetes mellitus, osteomyelitis s/p amputation of right 5th toe, and peripheral vascular disease who is seen in follow-up for osteomyelitis of the left 5th toe. He is doing well today. He has no
[2021-05-22 11:41] LABS: Glucose Point of Care 117 mg/dl (65-105)
[2021-05-22 14:00] VITALS: BP 163/89; PULSE 93; RESP 16; TEMP 36.6; O2SAT 99
--- NOTE | 2021-05-22 14:17 | PM.PNGS ---
Progress Note: A&P Assessment and Plan (1) Osteomyelitis of fifth toe of left foot: Code(s): M86.9 - Osteomyelitis, unspecified Status: Acute Assessment and Plan: MRI reviewed with patient, will likely need amputation, discussed extensively with patient and he would like to have surgery performed if necessary by his gold and silver assayer, as the patient is now improving with antibiotic I am comfortable with him being discharged on IV antibiotics and urgent follow-up with gold and silver assayer (2) Diabetic infection of left foot: Code(s): E11.628 - Type 2 diabetes mellitus with other skin complications; L08.9 - Local infection of the skin and subcutaneous tissue, unspecified Status: Acute Assessment and Plan: see above, continue IV antibiotics, await Podiatry consultation as outpatient, tight blood sugar control Subjective Subjective Date/Time Seen: 05/22/21 14:17 feels good, wants to go home, pain, swelling improved Review of Systems Review of Systems: All systems reviewed & are unremarkable except as noted in HPI and below Exam Const: General: cooperative, comfortable and no acute distress Resp: Effort & Inspection: normal respiratory effort Auscultation: clear to auscultation bilaterally Cardio: Rate: regular rate Rhythm: regular rhythm GI: Inspection: normal to inspection and non-distended GI Palp: No abdominal tenderness and Yes Soft to palpation Extrem: Other: L foot - swelling improved, sl cellulitis, dressing C/D/I Objective Data Vital Signs Vital Signs: Vital Signs - 24 hr 05/21/21 20:00 05/21/21 20:47 05/22/21 05:06 Temperature 36.2 C L 36.2 C L Pulse Rate 97 97 94 Respiratory Rate 16 16 16 Blood Pressure 174/91 H 159/94 H Pulse Oximetry 99 99 100 05/22/21 10:10 Temperature Pulse Rate 87 Respiratory Rate Blood Pressure 159/87 H Pulse Oximetry Intake/Output Intake/Output: Intake & Output 05/19/21 05/20/21 05/21/21 05/22/21 23:59 23:59 23:59 23:59 Intake Total 1600 2300 2980 1010 Balance 1600 2300 2980 1010 Meds/Results Medications: Active Medications Generic Name Dose Route Start Last Admin Trade Name Freq PRN Reason Stop Dose Admin Acetaminophen 650 mg 05/19/21 16:47 Acetaminophen 325 Mg Tablet PO Q4H PRN Mild Pain (1-3) or Fever Hydrocodone Bitart/Acetaminophen 1 tab 05/19/21 16:47 Hydrocodone/Acetaminophen (*Crx) 5-325 Mg Tablet PO Q4H PRN Pain Rated 4-6 Aspirin 81 mg 05/20/21 09:00 05/22/21 08:09 Aspirin 81 Mg Enteric Tablet PO 81 mg DAILY ALLY Administration Atorvastatin Calcium 40 mg 05/20/21 09:00 05/22/21 08:09 Atorvastatin 40 Mg Tablet PO 40 mg DAILY ALLY Administration Clopidogrel Bisulfate 75 mg 05/20/21 09:00 05/22/21 08:09 Clopidogrel Bisulfate 75 Mg Tablet PO 75 mg DAILY ALLY Administration Dextrose 12.5 gm 05/19/21 23:07 Dextrose 50% 25 Gm/50 Ml Syringe IV PUSH PRN PRN Hypoglycemia Protocol Empagliflozin 25 mg 05/20/21 09:00 05/22/21 08:09 Empagliflozin 25 Mg Tablet PO 25 mg DAILY [facility]Y Administration Glucagon 1 mg 05/19/21 23:07 Glucagon For Inj 1 Mg Vial IM PRN PRN Hypoglycemia Protocol Glucose 15 gm 05/19/21 23:07 Glucose Oral Gel 15 Gm Of Glucse In 37.5 Gm Tube PO PRN PRN Hypoglycemia Protocol Dextrose 1,000 mls @ 100 mls/hr 05/19/21 23:07 Dextrose 5% 1,000 Ml IVPB PRN PRN Hypoglycemia Protocol Vancomycin HCl 2,000 mg in 500 mls @ 250 mls/hr 05/21/21 08:00 05/22/21 08:09 Vancomycin 2,000 Mg/D5w 500 Ml IVPB 250 mls/hr Q12H [facility]Y Administration Insulin Aspart 3 - 6 units 05/20/21 08:00 05/22/21 13:23 Insulin Aspart (*Bkc) 100 Units/Ml SUB-Q Not Given TIDWM [facility] Protocol Insulin Glargine 23 units 05/19/21 23:30 05/21/21 20:15 Insulin Glargine (*Bkc) 100 Units/Ml SUB-Q 23 units HS [facility] Administration Lisinopril 5 mg 05/22/21 09:00 12
[2021-05-22 16:46] LABS: Glucose Point of Care 112 mg/dl (65-105)
[2021-05-22 19:26] LABS: Vancomycin Trough 12.9 ug/mL (10.0-20.0)
[2021-05-22] MEDS: INSULIN GLARGINE (*BKC) 100 UNITS/ML 23 UNITS SUB-Q (20:13)
[2021-05-22 20:22] LABS: Glucose Point of Care 195 mg/dl (65-105)
[2021-05-22 20:25] VITALS: BP 153/93; PULSE 96; RESP 18; TEMP 35.9; O2SAT 98
[2021-05-23 05:59] VITALS: BP 121/63; PULSE 96; RESP 16; TEMP 36; O2SAT 99
[2021-05-23 06:13] LABS: Hematocrit 40.6 % (42.0-52.0); Hemoglobin 13.5 g/dL (14.0-18.0); Mean Corpuscular HGB Conc 33.3 g/dl (32-36); Mean Corpuscular Hemoglobin 28.7 pg (26-34); Mean Corpuscular Volume 86.4 fl (80-100); Mean Platelet Volume 8.8 fl (7.4-10.4); Platelet Count Result 381 k/mm3 (150-375); Red Cell Distribution Width 12.3 % (11.5-14.5); White Blood Count 11.1 K/mm3 (4.5-10.0)
[2021-05-23 06:24] LABS: Anion Gap 11 mmol/L (8-16); Blood Urea Nitrogen 13 mg/dL (9-20); CRP 3.7 mg/dL (<1.0); Calcium 9.2 mg/dL (8.4-10.2); Carbon Dioxide 22 mmol/L (22-30); Chloride 105 mmol/L (98-107); Estimated CRCL calculation 114 ml/min; Estimated Glomerular Filt Rate > 60; Glucose 132 mg/dL (65-110); Potassium 3.9 mmol/L (3.4-5.0); Sodium 138 mmol/L (137-145)
--- NOTE | 2021-05-23 07:23 | PM.PNGS ---
Progress Note: A&P Assessment and Plan (1) Osteomyelitis of fifth toe of left foot: Code(s): M86.9 - Osteomyelitis, unspecified Status: Acute Assessment and Plan: setup for PICC today, IV abx, f/u c podiatry as outpatient, no acute surgical issues, will s/o, call c ?s, issues Subjective Subjective Date/Time Seen: 05/23/21 07:23 no acute issues, feels good, wants to go home Review of Systems Review of Systems: All systems reviewed & are unremarkable except as noted in HPI and below Exam Const: General: cooperative, comfortable and no acute distress Resp: Effort & Inspection: normal respiratory effort Auscultation: clear to auscultation bilaterally Cardio: Rate: regular rate Rhythm: regular rhythm GI: Inspection: normal to inspection GI Palp: Yes Soft to palpation and No Tenderness to palpation present (GI) Skin: General skin exam: normal color and no rashes or lesions noted Extrem: Other: L foot - unchanged, cellulitis sl improved, swelling improved Objective Data Vital Signs Vital Signs: Vital Signs - 24 hr 05/22/21 10:10 05/22/21 14:00 05/22/21 20:25 Temperature 36.6 C 35.9 C L Pulse Rate 87 93 96 Respiratory Rate 16 18 Blood Pressure 159/87 H 163/89 H 153/93 H Pulse Oximetry 99 98 05/23/21 05:59 Temperature 36.0 C L Pulse Rate 96 Respiratory Rate 16 Blood Pressure 121/63 Pulse Oximetry 99 Intake/Output Intake/Output: Intake & Output 05/20/21 05/21/21 05/22/21 05/23/21 23:59 23:59 23:59 23:59 Intake Total 2300 2980 2900 150 Balance 2300 2980 2900 150 Meds/Results Medications: Active Medications Generic Name Dose Route Start Last Admin Trade Name Freq PRN Reason Stop Dose Admin Acetaminophen 650 mg 05/19/21 16:47 Acetaminophen 325 Mg Tablet PO Q4H PRN Mild Pain (1-3) or Fever Hydrocodone Bitart/Acetaminophen 1 tab 05/19/21 16:47 Hydrocodone/Acetaminophen (*Crx) 5-325 Mg Tablet PO Q4H PRN Pain Rated 4-6 Aspirin 81 mg 05/20/21 09:00 05/22/21 08:09 Aspirin 81 Mg Enteric Tablet PO 81 mg DAILY ALLY Administration Atorvastatin Calcium 40 mg 05/20/21 09:00 05/22/21 08:09 Atorvastatin 40 Mg Tablet PO 40 mg DAILY [facility]Y Administration Clopidogrel Bisulfate 75 mg 05/20/21 09:00 05/22/21 08:09 Clopidogrel Bisulfate 75 Mg Tablet PO 75 mg DAILY [facility]Y Administration Dextrose 12.5 gm 05/19/21 23:07 Dextrose 50% 25 Gm/50 Ml Syringe IV PUSH PRN PRN Hypoglycemia Protocol Empagliflozin 25 mg 05/20/21 09:00 05/22/21 08:09 Empagliflozin 25 Mg Tablet PO 25 mg DAILY [facility]Y Administration Glucagon 1 mg 05/19/21 23:07 Glucagon For Inj 1 Mg Vial IM PRN PRN Hypoglycemia Protocol Glucose 15 gm 05/19/21 23:07 Glucose Oral Gel 15 Gm Of Glucse In 37.5 Gm Tube PO PRN PRN Hypoglycemia Protocol Dextrose 1,000 mls @ 100 mls/hr 05/19/21 23:07 Dextrose 5% 1,000 Ml IVPB PRN PRN Hypoglycemia Protocol Vancomycin HCl 1,500 mg in 500 mls @ 333.333 mls/hr 05/22/21 22:00 05/23/21 06:50 Vancomycin 1,500 Mg/D5w 500 Ml IVPB 333 mls/hr Q8H [facility]Y Administration Insulin Aspart 3 - 6 units 05/20/21 08:00 05/22/21 17:00 Insulin Aspart (*Bkc) 100 Units/Ml SUB-Q Not Given TIDWM [facility] Protocol Insulin Glargine 23 units 05/19/21 23:30 05/22/21 20:13 Insulin Glargine (*Bkc) 100 Units/Ml SUB-Q 23 units HS [facility] Administration Lisinopril 5 mg 05/22/21 09:00 05/22/21 10:14 Lisinopril 5 Mg Tablet PO 5 mg QAM ALLY Administration Morphine Sulfate 4 mg 05/19/21 16:47 Morphine Sulfate (*Crx) 4 Mg/Ml Inj IV PUSH Q2H PRN Pain Rated 7-10 Ondansetron HCl 4 mg 05/19/21 16:47 Ondansetron Inj 4 Mg/2 Ml Vial IV PUSH Q4H PRN Nausea Radiology Results: ITS Impressions Foot X-Ray 05/19/21 16:14 IMPRESSION: 1. Erosion of head of fifth metatarsal. The differential diagnosis includes ost
[2021-05-23 07:52] LABS: Glucose Point of Care 159 mg/dl (65-105)
[2021-05-23] MEDS: EMPAGLIFLOZIN 25 MG TABLET PO (07:59)
[2021-05-23] MEDS: ASPIRIN 81 MG ENTERIC TABLET PO (07:59)
[2021-05-23] MEDS: CLOPIDOGREL BISULFATE 75 MG TABLET PO (07:59)
[2021-05-23] MEDS: lisinopriL 5 MG TABLET PO (07:59)
[2021-05-23] MEDS: ATORVASTATIN 40 MG TABLET PO (08:00)
--- NOTE | 2021-05-23 09:30 | PM.DS ---
DS: Admitting Diagnosis Discharge Date Date of service 05/23/2021 at 0930 Admitting Diagnosis osteomyelitis of the left foot DS: Discharge Diagnosis Discharge Diagnosis (1) Diabetic infection of left foot: Code(s): E11.628 - Type 2 diabetes mellitus with other skin complications; L08.9 - Local infection of the skin and subcutaneous tissue, unspecified Status: Acute Assessment and Plan: Imaging shows erosion of the head of the 5th metatarsal most consistent with osteomyelitis or gout Uric acid 5.1 Continue imipenem and vancomycin per antibiotic stewardship recommendations General surgery Consulted thank you for your help Wound Care consultation MRI of the left foot is ordered and pending Leukocytosis improving 10.9 Preliminary blood cultures negative to date afebrile Supportive care to include analgesics, ice, or heat as needed Elevate extremity. (2) Cellulitis of left foot: Code(s): L03.116 - Cellulitis of left lower limb Status: Acute Assessment and Plan: broad-spectrum antibiotics as detailed above. (3) Insulin dependent type 2 diabetes mellitus: Code(s): E11.9 - Type 2 diabetes mellitus without complications; Z79.4 - [facility] (current) use of insulin Status: Acute Assessment and Plan: Current glucose is 101 A1c is 6.2 Seems to be well controlled Continue basal insulin and empagliflozin Continue sliding scale insulin Accu-Cheks hypoglycemic protocol Trend glucose (4) Diabetic peripheral neuropathy: Code(s): E11.42 - Type 2 diabetes mellitus with diabetic polyneuropathy Status: Acute Assessment and Plan: Severe neuropathy in his feet, not currently on any medication. (5) Peripheral vascular disease: Code(s): I73.9 - Peripheral vascular disease, unspecified Status: Acute Assessment and Plan: Continue aspirin and clopidogrel. (6) Elevated blood pressure reading: Code(s): R03.0 - Elevated blood-pressure reading, without diagnosis of hypertension Status: Acute Assessment and Plan: Current BP is 148/83 Blood pressure is elevated in the 150-160 systolic range denies any history of hypertension May be related to pain and/or anxiety related to hospitalization Continue to monitor blood pressure trends Add lisinopril 5mg DS: Summary Hospital Course Hospital Course: patient is a 55-year-old male with past medical history diabetes, hyperlipidemia, osteomyelitis PVD who presented to the ED by direction his electrical intern for evaluation of left diabetic foot ulcer. General surgery was consulted and an MRI was performed which did show acute osteomyelitis of the head of the 5th metatarsal and the base of the 5th proximal 40 mg with septic arthritis. Wound cultures from 05/19 grew Staph coccus aureus. After consult with patient's electrical intern it was decided the patient would start on IV antibiotics for 6 weeks. Patient will be reassessed by his electrical intern and further care will be determined at that time. Since admission patient has not had any complaints of pain, chest pain, shortness of breath, nausea, vomiting, abdominal pain, sweats, fevers, chills. Labs have been stable. Education given about better control over glucose levels. Patient was also found to be hypertensive and was started on 5 mg of lisinopril daily. Patient will be getting a PICC line installed. And he will infuse vancomycin every 8 hours at home. Titration dependent on trough levels. Status at Discharge Functional status at discharge: independent ambulation Overall status at discharge: patient is progressing back to baseline Time Spent with Patient Time attestation: Total time spent providing and/or coordinating discharge services: 52 minutes Time spent: Greater than 30 minutes Exam Const: General: cooperative, healthy appearing, no acute distress, well developed, alert and awake Nutritional
--- NOTE | 2021-05-23 09:30 | P.DS_ITS ---
DS: Admitting Diagnosis Discharge Date Date of service 05/23/2021 at 0930 Admitting Diagnosis osteomyelitis of the left foot DS: Discharge Diagnosis Discharge Diagnosis (1) Diabetic infection of left foot: Code(s): E11.628 - Type 2 diabetes mellitus with other skin complications; L08.9 - Local infection of the skin and subcutaneous tissue, unspecified Status: Acute Assessment and Plan: * Imaging shows erosion of the head of the 5th metatarsal most consistent with osteomyelitis or gout * Uric acid 5.1 * Continue imipenem and vancomycin per antibiotic stewardship recommendations * General surgery Consulted thank you for your help * Wound Care consultation * MRI of the left foot is ordered and pending * Leukocytosis improving 10.9 * Preliminary blood cultures negative to date * afebrile * Supportive care to include analgesics, ice, or heat as needed * Elevate extremity. (2) Cellulitis of left foot: Code(s): L03.116 - Cellulitis of left lower limb Status: Acute Assessment and Plan: * broad-spectrum antibiotics as detailed above. 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 (5) Peripheral vascular disease: Code(s): I73.9 - Peripheral vascular disease, unspecified Status: Acute Assessment and Plan: * Continue aspirin and clopidogrel. (6) Elevated blood pressure reading: Code(s): R03.0 - Elevated blood-pressure reading, without diagnosis of hypertension Status: Acute Assessment and Plan: * Current BP is 148/83 * Blood pressure is elevated in the 150-160 systolic range * denies any history of hypertension * May be related to pain and/or anxiety related to hospitalization * Continue to monitor blood pressure trends * Add lisinopril 5mg DS: Summary Hospital Course Hospital Course: patient is a 55-year-old male with past medical history diabetes, hyperlipidemia, osteomyelitis PVD who presented to the ED by direction his registered public surveyor for evaluation of left diabetic foot ulcer. General surgery was consulted and an MRI was performed which did show acute osteomyelitis of the head of the 5th metatarsal and the base of the 5th proximal 40 mg with septic arthritis. Wound cultures from 05/19 grew Staph coccus aureus. After consult with patient's registered public surveyor it was decided the patient would start on IV antibiotics for 6 weeks. Patient will be reassessed by his registered public surveyor and further care will be determined at that time. Since admission patient has not had any complaints of pain, chest pain, shortness of breath, nausea, vomiting, abdominal pain, sweats, fevers, chills. Labs have been stable. Education given about better control over glucose levels. Patient was also found to be hypertensive and was started on 5 mg of lisinopril daily. Patient will be getting a PICC line installed. And he will infuse vancomycin every 8 hours at home. Titration dependent on trough levels. Status
[2021-05-23] MEDS: LIDOCAINE HCL 1% PF INJ 5 ML VIAL INFILTRATE (11:30)
[2021-05-23 12:06] LABS: Glucose Point of Care 126 mg/dl (65-105)
== END 2021-05-23 13:25 | disposition home health service (06) | DRG 638 ==
LOC: ANHED 16:24 → ANH3MED 19:43
PROVIDERS: Physician Assistant; Admitting Provider Family Medicine; Emergency Provider Emergency Medicine; PCP Podiatrist Foot & Ankle Surgery; Visit Provider Nurse Practitioner
DX: E11.69 Type 2 diabetes mellitus with other specified complication (principal); L03.116 Cellulitis of left lower limb; M86.172 Other acute osteomyelitis, left ankle and foot; M00.9 Pyogenic arthritis, unspecified; E11.628 Type 2 diabetes mellitus with other skin complications; E11.42 Type 2 diabetes mellitus with diabetic polyneuropathy; E11.51 Type 2 diabetes mellitus with diabetic peripheral angiopathy without gangrene; E11.621 Type 2 diabetes mellitus with foot ulcer; L97.529 Non-pressure chronic ulcer of other part of left foot with unspecified severity; I10 Essential (primary) hypertension; E78.5 Hyperlipidemia, unspecified; Z79.02 Long term (current) use of antithrombotics/antiplatelets; Z79.4 Long term (current) use of insulin; Z79.82 Long term (current) use of aspirin; Z79.84 Long term (current) use of oral hypoglycemic drugs; Z79.899 Other long term (current) drug therapy
CPT/HCPCS: 36415; 36569; 73630; 73720; 80048; 80053; 80202; 82948; 83036; 83605; 83735; 84550; 85025; 85027; 85652; 86140; 87040; 96361; 96365; 96366; 96367; 99285; A9270; A9577; C1751; G0378; J0743; J1815; J3370; J7030